=== PATIENT | female | born 1980 | race African-American/Black ===

== ENCOUNTER 2017-06-08 20:28 | Emergency (ER) | payer MEDICAID, MEDICARE, OTHER ==
[~2017-06-08] VITALS: Ht 165.1 cm; Wt 61.2 kg
[2017-06-08 20:45] VITALS: BP 125/73
[2017-06-08] MEDS ORDERED: VITAMIN D1000 UNI1 ORAL (20:50)
[2017-06-08] MEDS ORDERED: IBUPROFEN600 MG ORAL (21:14)
--- NOTE | 2017-06-08 21:14 | Emergency Room Report ---
History of Present Illness General Chief Complaint: Sore Throat Source: Patient Present Illness HPI Is a 36-year-old female with no past medical history. She presents with chief complaint of sore throat and raspiness for about a week and a half. Also occasional headache. No fever or chills but no nausea no vomiting. No sick contact. Has not take anything for this. Allergies: Coded Allergies: No Known Allergies (Unverified , 06/08/17) Patient History Past Medical History: see triage record, old chart reviewed Past Surgical History: none Pertinent Family History: none Social History: Denies: smoking Last Menstrual Period: 06/06/17 Now: No : 0 Para: 0 Immunizations: other Reviewed Nursing Documentation: PMH: Agreed, PSxH: Agreed Nursing Documentation-PM Past Medical History: No History, Except For History Of Psychiatric Problem: Yes - anxiety, depression Review of Systems Eye: Denies: eye pain, blurred vision ENT: Reports: throat pain, Denies: ear pain, nose congestion, throat swelling Respiratory: Denies: cough, shortness of breath Cardiovascular: Denies: chest pain, palpitations Gastrointestinal: Denies: abdominal pain, diarrhea, nausea, vomiting Musculoskeletal: Denies: back pain, joint pain Skin: Denies: rash Neurological: Denies: headache, numbness Endocrine: Denies: increased thirst, increased urine Hematologic/Lymphatic: Denies: easy bruising All Other Systems: negative except mentioned in HPI Physical Exam Vital Signs Date Time Temp Pulse Resp B/P (MAP) Pulse Ox O2 Delivery O2 Flow Rate FiO2 06/08/17 20:45 98.2 77 14 125/73 98 Room Air vitals normal Sp02 EP Interpretation: reviewed, normal General Appearance: well appearing, no apparent distress, alert Head: normocephalic, atraumatic Eyes: bilateral eye PERRL, bilateral eye EOMI ENT: hearing grossly normal, normal pharynx Neck: full range of motion, supple, no meningismus Respiratory: chest non-tender, lungs clear, normal breath sounds Cardiovascular #1: regular rate, rhythm, no murmur Gastrointestinal: normal bowel sounds, non tender, no mass, no organomegaly, no bruit, non-distended Musculoskeletal: back normal, gait/station normal, normal range of motion Psychiatric: mood/affect normal Skin: warm/dry Medical Decision Making Diagnostic Impression: Primary Impression: Sore throat ER Course Patient presents with a viral infection. No evidence of strep throat. No evidence of rest or distress. No evidence of any bacterial infection. We'll discharge home. Last Vital Signs Date Time Temp Pulse Resp B/P (MAP) Pulse Ox O2 Delivery O2 Flow Rate FiO2 06/08/17 20:45 98.2 77 14 125/73 98 Room Air Status: unchanged Disposition: HOME, SELF-CARE Condition: Stable Scripts Ibuprofen* (MOTRIN*) 600 Mg Tablet 600 MG ORAL Q8H Y for For Pain, #30 TAB 0 Refills Prov: DEMARCO JOAQUIN M.D. 06/08/17 Patient Instructions: Sore Throat Additional Instructions: Followup with your Dr. 7 days. Dasha freed. Return if worse. DEMARCO JOAQUIN M.D. Jun 08, 2017 21:14
[2017-06-08 22:00] VITALS: BP 125/73
== END 2017-06-08 22:00 | disposition home or self-care (01) ==
LOC: EMR 21:05
DX: J02.9 Acute pharyngitis, unspecified (principal); F41.9 Anxiety disorder, unspecified; H53.40 Unspecified visual field defects
CPT/HCPCS: 99283

== ENCOUNTER 2019-07-13 20:13 | Emergency (ER) | payer MEDICARE, OTHER ==
[~2019-07-13] VITALS: Ht 167.6 cm; Wt 59.0 kg
[~2019-07-13 20:13] MED LIST: IBUPROFEN600 MG ORAL; VITAMIN D1000 UNI1 ORAL
[2019-07-13 20:58] VITALS: BP 104/74
--- NOTE | 2019-07-13 21:16 | Emergency Room Report ---
History of Present Illness General Chief Complaint: Multiple Trauma/Fall Source: Patient Present Illness HPI 38-year-old female with no significant past medical history here complaining of multiple trauma that occurred yesterday. Patient reports that she landed on the left side of her body complaining of left shoulder pain, left foot pain. Has full range of motion of all extremities. No bony tenderness noted. No impingement sign noted. Patient has not taken medication for symptom relief. Rates the pain 3 out of 10 without radiation. Denies tingling or numbness. Denies . Denies other associated symptoms. Denies loss of consciousness and headache. Denies any head trauma. Allergies: Coded Allergies: No Known Allergies (Unverified , 06/08/17) Patient History Past Medical History: see triage record Past Surgical History: none Pertinent Family History: none Last Menstrual Period: 06/2019 Now: No Immunizations: UTD Reviewed Nursing Documentation: PMH: Agreed; PSxH: Agreed Nursing Documentation-PMH Past Medical History: No Stated History Review of Systems All Other Systems: negative except mentioned in HPI Physical Exam Vital Signs Date Time Temp Pulse Resp B/P (MAP) Pulse Ox O2 Delivery O2 Flow Rate FiO2 07/13/19 20:50 97.5 73 16 104/74 (84) 100 Room Air Sp02 EP Interpretation: reviewed, normal General Appearance: no apparent distress, alert, GCS 15, non-toxic Head: normocephalic, atraumatic Eyes: bilateral eye normal inspection, bilateral eye PERRL ENT: hearing grossly normal, normal pharynx, no angioedema, normal voice Neck: full range of motion, supple/symm/no masses Respiratory: chest non-tender, lungs clear, normal breath sounds, no rhonchi, no respiratory distress, speaking full sentences Cardiovascular #1: regular rate, rhythm, no edema, no murmur Cardiovascular #2: 2+ carotid (R), 2+ carotid (L), 2+ radial (R), 2+ radial (L) , 2+ dorsalis pedis (R), 2+ dorsalis pedis (L) Gastrointestinal: normal bowel sounds, non tender, soft, non-distended, no guarding, no rebound Genitourinary: no CVA tenderness Musculoskeletal: back normal, normal range of motion, digits/nails normal, no calf tenderness, pelvis stable, non-tender, other - no impingement sign noted Neurologic: alert, motor strength/tone normal, oriented x3, sensory intact, responsive, speech normal Psychiatric: judgement/insight normal, memory normal, mood/affect normal, no suicidal/homicidal ideation Skin: no rash Lymphatic: no adenopathy Medical Decision Making PA Attestation All diagnoses and treatment plans were reviewed and discussed with my supervising physician Dr. Michel Diagnostic Impression: Primary Impression: Shoulder sprain Additional Impression: Foot contusion ER Course 38-year-old female with no significant past medical history here complaining of multiple trauma that occurred yesterday. Patient reports that she landed on the left side of her body complaining of left shoulder pain, left foot pain. Has full range of motion of all extremities. No bony tenderness noted. No impingement sign noted. Patient has not taken medication for symptom relief. Rates the pain 3 out of 10 without radiation. Denies tingling or numbness. Denies . Denies other associated symptoms. Denies loss of consciousness and headache. Denies any head trauma. Ddx considered but are not limited to: foot fracture, foot sprain, foot contusion, foot strain, shoulder sprain, shoulder strain, shoulder fracture, rotator cuff tear Vital signs: are WNL, pt. is afebrile H&PE are most consistent with: Left shoulder sprain, left foot contusion ORDERS: foot Xray, no shoulder x-ray necessary Patient has pharyngeal motion, no bony tenderness noted, no impingement sign noted, Motrin, Robaxin ED INTERVENTIONS: None required at this time. DISCHARGE: At this time pt. is stable for d/c to home. Will provide printed patient care instructions, and any necessary prescriptions. Care plan and follow up instructions have been discussed with the patient prior to discharge. Avoid strenuous physical activity with affected side, take medication as directed, alternate between icing and heating affected area, follow-up with primary care provider, if worsening symptoms return to the emergency room Other X-Ray Diagnostic Results Other X-Ray Diagnostic Results : X-Ray ordered: left foot # of Views/Limited Vs Complete: 3 View Indication: Pain EP Interpretation: Yes PA Xray: Interpretation reviewed, by supervising , and agrees with findings. Interpretation: no dislocation, no soft tissue swelling, no fractures Impression: No acute disease Electronically Signed by: Nahal Saheli PA-C Last Vital Signs Date Time Temp Pulse Resp B/P (MAP) Pulse Ox O2 Delivery O2 Flow Rate FiO2 07/13/19 20:58 97.5 73 16 104/74 100 Room Air Disposition: HOME, SELF-CARE Condition: Stable Referrals: [facility],REFERRING (PCP) Patient Instructions: Foot Contusion, [id number], Shoulder Sprain Additional Instructions: Avoid strenuous physical activity with affected side, take medication as directed, alternate between icing and heating affected area, follow-up with primary care provider, if worsening symptoms return to the emergency room Ernesto Sky Jul 13, 2019 21:16
[2019-07-13] MEDS ORDERED: IBUPROFEN600 MG ORAL (21:17)
[2019-07-13] MEDS ORDERED: ROBAXIN-500MG ORAL (21:17)
[2019-07-13 21:31] VITALS: BP 104/74
--- NOTE | 2019-07-14 12:21 | Diagnostic Imaging Report ---
Indication: Foot pain Comparison: None Findings: 3 views of the left foot were obtained. No acute fractures, malalignment, erosions or periostitis are identified. Soft tissues are unremarkable. Impression: No acute findings
== END 2019-07-13 21:30 | disposition home or self-care (01) ==
LOC: EMR 20:27
DX: S43.402A Unspecified sprain of left shoulder joint, initial encounter (principal); S90.32XA Contusion of left foot, initial encounter; X58.XXXA Exposure to other specified factors, initial encounter; Y92.9 Unspecified place or not applicable
CPT/HCPCS: 99283

== ENCOUNTER 2020-02-25 18:29 | Emergency (ER) | payer MEDICARE ==
[~2020-02-25] VITALS: Ht 167.6 cm; Wt 59.9 kg
[~2020-02-25 18:29] MED LIST changes: +ROBAXIN-500MG ORAL
[2020-02-25 19:10] VITALS: BP 105/58
--- NOTE | 2020-02-25 19:30 | NUR ---
ED Nurse Note: Pt placed in [place] 1. pt states that she fell while attempting to get up from sitting in tub using right wrist to brace the fall. Pt states she felt pain at the time but reports no pain at this time. Pt states she "just wants an xray to look for anything broken." No swelling or redness noted at this time, pt denies decrease in ROM. Pt aao x 4, ambulates with steady gait. VSS no ss of distress noted. will continue to monitor. Awaiting ERMD at bedside.
--- NOTE | 2020-02-25 20:02 | NUR ---
ED Nurse Note: ERMD at bedside
--- NOTE | 2020-02-25 20:09 | NUR ---
ED Nurse Note: R wrist splint applied per ERMD
--- NOTE | 2020-02-25 20:22 | Emergency Room Report ---
History of Present Illness General Chief Complaint: Upper Extremity Injury Source: Patient Present Illness HPI This patient states that yesterday she tripped and fell while stepping up a curb to get on a bus. She states when she fell backwards she put out her right hand. She states she noted when she went to push off her hand earlier today she had sudden and severe pain in the right wrist. She states that she does not have pain currently. She denies tingling or numbness. She denies any other injury. She has no other complaints. Allergies: Coded Allergies: No Known Allergies (Unverified , 06/08/17) COVID-19 Screening Contact w/high risk pt: No Experienced COVID-19 symptoms?: No COVID-19 Testing performed COUNCILOR: No Patient History Past Medical History: none Social History: Denies: smoking, alcohol use, drug use Last Menstrual Period: 9- Now: No Reviewed Nursing Documentation: PMH: Agreed; PSxH: Agreed Nursing Documentation-PMH Past Medical History: No Stated History Review of Systems All Other Systems: negative except mentioned in HPI Physical Exam Vital Signs Date Time Temp Pulse Resp B/P (MAP) Pulse Ox O2 Delivery O2 Flow Rate FiO2 02/25/20 18:33 97.9 69 20 105/58 (74) 98 Room Air Sp02 EP Interpretation: reviewed, normal General Appearance: no apparent distress, alert, GCS 15, non-toxic Head: normocephalic, atraumatic Eyes: bilateral eye normal inspection ENT: hearing grossly normal, no angioedema, normal voice Neck: normal inspection Respiratory: no respiratory distress, no retraction, no accessory muscle use, speaking full sentences Rectal: deferred Musculoskeletal: back normal, normal range of motion, gait/station normal, non- tender, other - R. wrist slightly ttp over anterior wrist. Neurologic: alert, motor strength/tone normal, oriented x3, sensory intact, responsive, speech normal Psychiatric: judgement/insight normal, memory normal, mood/affect normal, no suicidal/homicidal ideation Skin: no rash, normal color Procedures Splinting Splinting : Consent: Verbal Location: R. wrist Pre-Made Type: velcro Splint: volar Pre-Proc Neuro Vasc Exam: normal Post-Proc Neuro Vasc Exam: normal Patient Tolerated: Well Complications: None Medical Decision Making Diagnostic Impression: Primary Impression: Right wrist sprain ER Course This patient has a clinical presentation consistent with wrist sprain. X-ray of the right wrist shows no acute fracture. The patient was given a manufactured splint for comfort. No emergency medical condition was identified. The patient given close return precautions and follow-up instructions. I warned the patient that plain x-rays have a significant false-negative rate. Factors, significant soft tissue injuries, and other pathology may be present even though not seen on x-ray. Injuries serious enough to ultimately require surgery may be present with normal x-rays. This can occur because some fractures or not initially visible on plain film x-rays or, rarely, the ra diologist may discover a subtle fracture that I missed on my preliminary read. It was explained that close outpatient followup is required to evaluate this possibility. If all symptoms resolve or improve significantly in the coming weeks, no further testing is needed. However, if the pain/symptoms persist, additional studies such as MRI/CT or repeat x-ray would be needed to rule out the possibility of serious soft tissue injury. The patient agreed to followup as directed. Other X-Ray Diagnostic Results Other X-Ray Diagnostic Results : X-Ray ordered: R. wrist # of Views/Limited Vs Complete: Complete EP Interpretation: Yes Interpretation: no fractures Impression: No acute disease Electronically Signed by: Jazz Hagan DO Last Vital Signs Date Time Temp Pulse Resp B/P (MAP) Pulse Ox O2 Delivery O2 Flow Rate FiO2 02/25/20 18:33 97.9 69 20 105/58 (74) 98 Room Air Status: improved Disposition: HOME, SELF-CARE Condition: Improved Jazz Hagan DO Feb 25, 2020 20:22
[2020-02-25 20:28] VITALS: BP 110/62
--- NOTE | 2020-02-25 20:28 | NUR ---
ER DISCHARGE NOTE: Patient is cleared to be discharged home with wrist brace per ERMD, pt is aox4, 98% on room air, with stable vital signs. pt was given dc instructions, pt was able to verbalize understanding, pt id band removed without complications. pt is able to ambulate with steady gait. pt took all belongings.
--- NOTE | 2020-02-26 14:04 | Diagnostic Imaging Report ---
INDICATION: Wrist pain TECHNIQUE: XRAY Wrist Complete R frontal, lateral, and oblique views of the right wrist COMPARISON: None FINDINGS: There is no acute fracture or dislocation. Joint spaces are maintained. No acute soft tissue abnormality. IMPRESSION: No acute fracture or dislocation.
== END 2020-02-25 20:28 | disposition home or self-care (01) ==
LOC: EMR 19:45
DX: S63.501A Unspecified sprain of right wrist, initial encounter (principal); W01.0XXA Fall on same level from slipping, tripping and stumbling without subsequent striking against object, initial encounter; Y92.9 Unspecified place or not applicable
CPT/HCPCS: 99283

== ENCOUNTER 2020-03-29 19:20 | Emergency (ER) | payer MEDICARE ==
[~2020-03-29] VITALS: Ht 167.6 cm; Wt 59.9 kg
--- NOTE | 2020-03-29 19:50 | NUR ---
ED Nurse Note: Patient walked in to ER from home with c/o left thumb and middle finger pain onset 2 weeks ago. Patient denies injury or trauma. Skin is intact, no swelling/redness noted. Pt denies fever and chills, N&V
--- NOTE | 2020-03-29 20:00 | NUR ---
ED Nurse Note: ERPA at bedside
--- NOTE | 2020-03-29 20:05 | NUR ---
ED Nurse Note: Xray done
--- NOTE | 2020-03-29 20:30 | NUR ---
ED Nurse Note: Splint applied to affected finger
[2020-03-29] MEDS ORDERED: ROBAXIN-500MG ORAL (20:33)
[2020-03-29] MEDS ORDERED: IBUPROFEN600 M1 ORAL (20:33)
--- NOTE | 2020-03-29 20:33 | Emergency Room Report ---
History of Present Illness General Chief Complaint: Upper Extremity Injury Source: Patient Present Illness HPI 39-year-old female with no signal past medical history here complaining of pain in left thumb and middle finger x1 week. Patient does not recall how it happened however reports that he "might have sprained it.". Has not taken medication for symptom relief. Has full range of motion, is neurovascularly intact and denies any tingling numbness. Has full strength of the upper extremities. Denies . Allergies: Coded Allergies: No Known Allergies (Unverified , 06/08/17) COVID-19 Screening Contact w/high risk pt: No Experienced COVID-19 symptoms?: No COVID-19 Testing performed SKIRT MAKER: No Patient History Past Medical History: see triage record Past Surgical History: none Pertinent Family History: none Last Menstrual Period: now Now: No Immunizations: UTD Reviewed Nursing Documentation: PMH: Agreed; PSxH: Agreed Nursing Documentation-PMH Past Medical History: No Stated History Review of Systems All Other Systems: negative except mentioned in HPI Physical Exam Vital Signs Date Time Temp Pulse Resp B/P (MAP) Pulse Ox O2 Delivery O2 Flow Rate FiO2 03/29/20 19:44 98.2 72 20 100/66 (77) 98 Room Air Sp02 EP Interpretation: reviewed, normal General Appearance: no apparent distress, alert, GCS 15, non-toxic Head: normocephalic, atraumatic Eyes: bilateral eye normal inspection, bilateral eye PERRL ENT: hearing grossly normal, normal pharynx, no angioedema, normal voice Neck: full range of motion, supple/symm/no masses Respiratory: chest non-tender, lungs clear, normal breath sounds, speaking full sentences Cardiovascular #1: regular rate, rhythm, no edema Cardiovascular #2: 2+ radial (R), 2+ radial (L) Gastrointestinal: normal bowel sounds, non tender, soft, non-distended, no guarding, no rebound Rectal: deferred Genitourinary: no CVA tenderness Musculoskeletal: back normal, non-tender Neurologic: alert, motor strength/tone normal, oriented x3, sensory intact, responsive, speech normal Psychiatric: judgement/insight normal, memory normal, mood/affect normal, no suicidal/homicidal ideation Skin: no rash Lymphatic: no adenopathy Procedures Splinting Splinting : Consent: Verbal Location: Left middle finger Pre-Made Type: metal Pre-Proc Neuro Vasc Exam: normal Post-Proc Neuro Vasc Exam: normal Patient Tolerated: Well Complications: None Medical Decision Making PA Attestation All my diagnosis and treatment plans were reviewed ad discussed with my [facility] physician Dr. Vargas Diagnostic Impression: Primary Impression: Finger sprain ER Course 39-year-old female with no signal past medical history here complaining of pain in left thumb and middle finger x1 week. Patient does not recall how it happened however reports that he "might have sprained it.". Has not taken medication for symptom relief. Has full range of motion, is neurovascularly intact and denies any tingling numbness. Has full strength of the upper extremities. Denies . Ddx considered but are not limited to: Hand sprain, hand sprain, hand fracture Vital signs: are WNL, pt. is afebrile H&PE are most consistent with : Finger sprain ORDERS: Hand x-ray, Robaxin, Motrin ED INTERVENTIONS: Metal splint applied middle finger. DISCHARGE: At this time pt. is stable for d/c to home. Will provide printed patient care instructions, and any necessary prescriptions. Care plan and follow up instructions have been discussed with the patient prior to discharge. Patient take medication as directed, follow primary care provider, worsening symptoms return to the emergency room Other X-Ray Diagnostic Results Other X-Ray Diagnostic Results : X-Ray ordered: left hand # of Views/Limited Vs Complete: 3 View Indication: Pain EP Interpretation: Yes PA Xray: Interpretation reviewed, by supervising MD, and agrees with findings. Interpretation: no dislocation, no soft tissue swelling, no fractures Impression: No acute disease Electronically Signed by: Ernesto Hernandez PA-C Last Vital Signs Date Time Temp Pulse Resp B/P (MAP) Pulse Ox O2 Delivery O2 Flow Rate FiO2 03/29/20 19:44 98.2 72 20 100/66 (77) 98 Room Air Disposition: HOME, SELF-CARE Condition: Stable Scripts Ibuprofen* (MOTRIN*) 600 Mg Tablet 600 MG ORAL Q6H PRN for FOR PAIN, #20 TAB 0 Refills Prov: Ernesto Sky 03/29/20 Methocarbamol* (ROBAXIN-500*) 500 Mg Tablet 500 MG ORAL TID PRN for For Pain, #15 TAB 0 Refills Prov: Ernesto Sky 03/29/20 Patient Instructions: Finger Sprain, [id number] Additional Instructions: Take medication as directed, follow primary care provider, if worsening symptoms return to the emergency room Ernesto Sky Mar 29, 2020 20:33
--- NOTE | 2020-03-29 20:40 | NUR ---
ER DISCHARGE NOTE: Patient is cleared to be discharged per ERMD, pt is aox4, on room air, with stable vital signs. pt was given dc and prescription instructions, pt was able to verbalize understanding, pt id band removed. pt is able to ambulate with steady gait. pt took all belongings.
[2020-03-29 20:41] VITALS: BP 100/66
--- NOTE | 2020-03-30 16:24 | Diagnostic Imaging Report ---
Indication: Left thumb and middle finger pain x2 weeks Technique: 3 views left hand Comparison: none Findings: No acute fracture. No dislocation. Joint spaces are preserved. No radiopaque foreign body Impression: Negative
== END 2020-03-29 20:50 | disposition home or self-care (01) ==
LOC: EMR 20:30
DX: S63.613A Unspecified sprain of left middle finger, initial encounter (principal); X58.XXXA Exposure to other specified factors, initial encounter; Y92.9 Unspecified place or not applicable
CPT/HCPCS: 99283